=== PATIENT | female | born 1995 | race Caucasian/White ===

== ENCOUNTER 2017-01-02 18:40 | Emergency (ER) | payer BC ==
[~2017-01-02] VITALS: Ht 157.5 cm; Wt 68.2 kg
[2017-01-02 19:40] VITALS: BP 114/67
== END 2017-01-02 19:40 | disposition home or self-care (01) ==
LOC: ED
DX: T63.461A Toxic effect of venom of wasps, accidental (unintentional), initial encounter (principal)

== ENCOUNTER 2017-05-26 18:34 | Emergency (ER) | payer BC ==
[2017-05-26] MEDS ORDERED: CLEOCIN HCL300 MG PO (19:08)
[2017-05-26 19:10] VITALS: BP 120/60
== END 2017-05-26 19:10 | disposition home or self-care (01) ==
LOC: ED 18:34
DX: L03.115 Cellulitis of right lower limb (principal); S70.361A Insect bite (nonvenomous), right thigh, initial encounter; W57.XXXA Bitten or stung by nonvenomous insect and other nonvenomous arthropods, initial encounter; Z88.0 Allergy status to penicillin; Z88.2 Allergy status to sulfonamides; Z91.038 Other insect allergy status